=== PATIENT | male | born 1965 | race Caucasian/White ===

== ENCOUNTER 2022-04-25 17:22 | Emergency (ER) | payer BC ==
[~2022-04-25] VITALS: Ht 180.3 cm; Wt 88.0 kg
[2022-04-25] MEDS ORDERED: LIDOCAINE 1% W/EPINEPHRINE 20 ML VIAL ONE ×2 (17:57→18:32)
[2022-04-25] MEDS ORDERED: TETANUS/DIPHTHERIA TOX ADULT 0.5 ML SYR ONE (17:57)
[2022-04-25] MEDS ORDERED: TETANUS/DIPHTHERIA TOX ADULT 0.5 ML SYR IM ONE (18:00)
[2022-04-25] MEDS ORDERED: LIDOCAINE 1% W/EPINEPHRINE 20 ML VIAL INJ ONE (18:00)
[2022-04-25] MEDS ORDERED: AMOXICILLIN/CLAVULANATE K 875 MG TAB PO STA (19:16)
[2022-04-25] MEDS ORDERED: BACITRACIN ZINC 0.9GM TP ONE ×2 (19:26→19:30)
[2022-04-25] MEDS ORDERED: AMOXICILLIN/CLAVULANATE K 875 MG TAB ONE (19:26)
[2022-04-25] MEDS ORDERED: PENICILLIN V P500 MG PO (19:48)
[2022-04-25 19:56] VITALS: BP 136/89
== END 2022-04-25 19:56 | disposition home or self-care (01) ==
LOC: FSED 17:32
DX: S01.511A Laceration without foreign body of lip, initial encounter (principal); Z23 Encounter for immunization; I10 Essential (primary) hypertension; I25.10 Atherosclerotic heart disease of native coronary artery without angina pectoris; F17.200 Nicotine dependence, unspecified, uncomplicated; W31.1XXA Contact with metalworking machines, initial encounter; Z79.02 Long term (current) use of antithrombotics/antiplatelets; Z79.82 Long term (current) use of aspirin; Z95.5 Presence of coronary angioplasty implant and graft
CPT/HCPCS: 90471; 90714; 99283

== ENCOUNTER 2022-04-30 07:55 | Emergency (ER) | payer BC ==
[~2022-04-30] VITALS: Ht 180.3 cm; Wt 88.0 kg
[~2022-04-30 07:55] MED LIST: PENICILLIN V P500 MG PO
== END 2022-04-30 09:30 | disposition home or self-care (01) ==
LOC: FSED 07:56
DX: Z48.02 Encounter for removal of sutures (principal)
CPT/HCPCS: 99282